=== PATIENT | female | born 1980 | race African-American/Black ===

== ENCOUNTER 2020-07-05 09:29 | Emergency (ER) | payer OTHER, SELFPAY ==
--- NOTE | 2020-07-05 09:50 | ED.URI ---
HPI - URI/Sore Throat General Chief Complaint: Upper Respiratory Infection Stated Complaint: Sore throat Time Seen by Provider: 07/05/20 10:05 Source: patient and RN notes reviewed Mode of arrival: ambulatory Limitations: no limitations History of Present Illness HPI Narrative: 4-year-old female presents with concern for 10-day history of nasal congestion, rhinorrhea. Reports symptoms of cough, throat pain, ear pain started yesterday. Reports blisters on the side of her tongue. Reports she has been taking ibuprofen and Sudafed with occasional relief. She denies fever, shortness of breath, chills, sweats. MD elicited complaint: sore throat Related Data Allergies Allergy/AdvReac Type Severity Reaction Status Date / Time azithromycin Allergy Swelling Verified 07/05/20 10:09 Review of Systems Review of Systems: Narrative: CONSTITUTIONAL: Denies malaise, chills, sweats, or fever. EYES: Denies visual changes, redness, or discharge. ENT: Reports rhinorrhea, congestion, sinus pain, otalgia and sore throat. CARDIOVASCULAR: Denies chest pain, palpitations, or edema. RESPIRATORY: Reports cough. Denies dyspnea. GASTROINTESTINAL: Denies abdominal pain, nausea, vomiting, diarrhea SKIN: Denies rash or itching. MUSCULOSKELETAL: Denies myalgia. NEUROLOGIC: Denies headache. All systems reviewed & are unremarkable except as noted in HPI and below PMFSH Social History Social History Gender identity (if verbalized by the patient): Female Comments At time of signature, agree with nursing past medical, surgical, social and family history. There is no relevant family history pertinent to the presenting complaint Exam Narrative: Exam Narrative: GENERAL: Well-appearing, well-nourished, and in no acute distress. HEAD: Normocephalic EYES: PERRLA, conjunctivae clear ENT: Nares clear, turbinates edematous and erythematous, sinus tenderness. Mucous membranes moist. TM mildly erythematous with dull light reflex bilaterally; no tragal tenderness. Oropharynx erythematous without lesions. Tonsils enlarged and without exudate, no drooling, no hoarseness, no trismus, uvula midline. NECK: Supple. No lymphadenopathy CHEST: Clear to auscultation, breath sounds equal. No wheezing, rhonchi, rales, or stridor. No respiratory distress, speaks in full sentences. HEART: Regular rate and rhythm. No murmur heard. SKIN: Warm, dry, no rash. NEURO: Alert and oriented x3. PSYCH: Normal mood and affect Course Course Emergency Course: Patient is aware of diagnosis, understands and agrees to treatment plan. Anticipatory guidance given. Patient agrees to follow-up as directed and is aware of reasons to seek care at the emergency department. Portions of this record may have been created with voice recognition software Vital Signs Vital signs: Vital Signs Temperature 98.6 F 07/05/20 09:54 Pulse Rate 91 07/05/20 09:54 Respiratory Rate 16 07/05/20 09:54 Blood Pressure 125/75 07/05/20 09:54 Pulse Oximetry 100 07/05/20 09:54 Temperature 98.6 F 07/05/20 09:54 Pulse Rate 91 07/05/20 09:54 Respiratory Rate 16 07/05/20 09:54 Blood Pressure 125/75 07/05/20 09:54 Pulse Oximetry 100 07/05/20 09:54 Reviewed. MDM - URI/Sore Throat MDM Narrative Medical decision making narrative: Differential diagnosis considered: Cain virus, strep pharyngitis, allergic rhinitis, upper respiratory tract infection, sinusitis, rhinosinusitis, nasopharyngitis. viral pharyngitis, otitis media, otitis externa, pneumonia, bronchitis, viral cough syndrome, viral syndrome, and influenza. Exam findings show no acute concerns or changes; patient is non-toxic appearing and is in no distress. Patient is appropriate for outpatient treatment and follow-up. Lab Data Attestation: I reviewed the patient's lab results. Labs: Strep Screen Presumptive Negative *(Reference Range: Negative)* Critical Care Time Criti
[2020-07-05 09:54] VITALS: BP 125/75; PULSE 91; RESP 16; TEMP 37; O2SAT 100
--- NOTE | 2020-07-05 10:28 | PC.NURSE ---
culture not sent, Marlyn called lab to cancel order, okay per Gisela GRIEVANCE AND APPEALS COORDINATOR
== END 2020-07-05 10:24 | disposition home or self-care (01) ==
PROVIDERS: Emergency Provider Nurse Practitioner
DX: J01.90 Acute sinusitis, unspecified (principal)
CPT/HCPCS: 87880; 99213; G0463

== ENCOUNTER 2020-10-08 13:03 | Emergency (ER) | payer OTHER, SELFPAY ==
--- NOTE | 2020-10-08 13:17 | PC.NURSE ---
was called x2 at 1313 at [phone]
--- NOTE | 2020-10-08 13:23 | PC.NURSE ---
called at 1322 no answer, message left to call express care back.
--- NOTE | 2020-10-08 13:35 | PC.NURSE ---
called again at 1333 and person answering said wrong number.
[2020-10-08 13:43] VITALS: BP 136/84; PULSE 102; RESP 16; TEMP 37.4; O2SAT 100
--- NOTE | 2020-10-08 13:48 | ED.SKABFB ---
HPI - Skin/Abscess/Foreign Bdy General Chief complaint: Skin/Abscess/Foreign Body Stated complaint: Rash on back of leg Time Seen by Provider: 10/08/20 13:45 Source: patient Mode of arrival: ambulatory Limitations: no limitations History of Present Illness HPI narrative: Tamika Fuller is a 40 yo female with no PMH who comes with a rash on the crease of her upper leg and buttocks bilaterally in the last week. The rash is raised itchy and tender to touch is not improved even with use of calamine, alcohol, lotion. Denies any allergies denies any change in care products, does not go to the gym Related Data Home Medications Medication Instructions Recorded Confirmed Iud 10/08/20 Allergies Allergy/AdvReac Type Severity Reaction Status Date / Time azithromycin Allergy Swelling Verified 07/05/20 10:09 Review of Systems Review of Systems: Narrative: CONSTITUTIONAL: Denies fever, chills, sweats. EYES: Denies visual changes, redness, discharge. ENT: Denies rhinorrhea, congestion, sore throat, otalgia. CARDIOVASCULAR: Denies chest pain, palpitations, edema. RESPIRATORY: Denies dyspnea, wheezing, cough GASTROINTESTINAL: Denies abdominal pain, nausea, vomiting, diarrhea. GENITOURINARY: Denies dysuria, hematuria, abnormal discharge SKIN: Raised mildly red rash on upper legs bilaterally, mostly posterior legs NEUROLOGIC: Denies numbness, or focal weakness. PSYCHIATRIC: Denies anxiety or depression. PMFSH Past Medical History Medical History No acute medical problems Family History Family History Other Diabetes mellitus Social History Social History (Updated 10/08/20 @ 14:02 by Regina Mendoza CNP) Smoking packs per day: 0.5 Smoking cigarettes per day: 10.0 Smoking status: Current every day smoker Alcohol intake: current Gender identity (if verbalized by the patient): Female Comments At time of signature, I agree with nursing past medical, surgical, social and family history. There is no relevant family history pertinent to the presenting complaint. Tachycardia noted on vital signs Exam Narrative: Exam Narrative: GENERAL: This is a well-nourished, well-developed patient, in mild distress. HEAD: normocephalic, atraumatic. EYES: Sclera clear/white. Vision is grossly intact. EARS: External ears normal,. Hearing grossly intact. NOSE: External nose normal without nasal discharge, nares without redness, no rhinorrhea. THROAT: Mucous membranes moist, NECK: Neck supple, CARDIOVASCULAR: Regular rate and rhythm without murmurs, gallops, or rubs. RESPIRATORY: Clear to auscultation. Breath sounds equal bilaterally. No wheezes, rales, or rhonchi. GASTROINTESTINAL: Abdomen soft, non-tender, SKIN: warm, intact with hive-like raised areas on both buttocks and upper posterior legs worse on the right than the left, mildly tender to touch NEURO: awake, alert, and oriented to person, place and time. There were no obvious focal neurologic abnormalities. Steady gait EXTREMITIES: Normal range of motion. BACK: Nontender without deformity Course Course Emergency Course: Came to urgent care with bilateral posterior leg rash that is tender and pruritic Started on clotrimazole and a Medrol taper pack Discussed with patient not wearing new close without washing or changing products keeping area dry We will follow up with PCP Vital Signs Vital signs: Vital Signs Temperature 99.3 F 10/08/20 13:43 Pulse Rate 102 H 10/08/20 13:43 Respiratory Rate 16 10/08/20 13:43 Blood Pressure 136/84 10/08/20 13:43 Pulse Oximetry 100 10/08/20 13:43 Temperature 99.3 F 10/08/20 13:54 Pulse Rate 102 H 10/08/20 13:54 Respiratory Rate 16 10/08/20 13:54 Blood Pressure 136/84 10/08/20 13:54 Pulse Oximetry 100 10/08/20 13:54 Critical Care Time Critical Care Time Critical Care Time: No Dis
[2020-10-08 13:54] VITALS: BP 136/84; PULSE 102; RESP 16; TEMP 37.4; O2SAT 100
== END 2020-10-08 14:13 | disposition home or self-care (01) ==
PROVIDERS: Emergency Provider Nurse Practitioner
DX: L50.9 Urticaria, unspecified (principal); F17.210 Nicotine dependence, cigarettes, uncomplicated
CPT/HCPCS: 99213; G0463

== ENCOUNTER 2020-10-26 15:08 | Outpatient (CLI) | payer OTHER, SELFPAY ==
[2020-10-26 16:37] LABS: Beta HCG Quantitative < 2.39 mIU/ML
== END 2020-10-26 15:09 | disposition home or self-care (01) ==
LOC: ANHLAB 15:10
PROVIDERS: Visit Provider Advanced Practice Midwife
DX: Z30.9 Encounter for contraceptive management, unspecified (principal)
CPT/HCPCS: 36415; 84702

== ENCOUNTER 2022-09-01 12:53 | Emergency (ER) | payer OTHER, SELFPAY ==
--- NOTE | ~2022-09-01 | XR_ITS ---
XR foot RT min 3V 09/01/2022 13:51 INDICATION: Right foot pain and swelling after twisting injury. PROCEDURE: 4 views right foot COMPARISON: No prior studies for comparison. FINDINGS: There is possible avulsion fracture from the lateral margin of the calcaneal cuboid joint s een on the oblique view only. There is moderate soft tissue swelling.. The soft tissues appear within normal limits. No foreign bodies are identified. IMPRESSION: 1: Possible avulsion fracture lateral margin of the calcaneal cuboid joint seen on oblique view only. Correlate for point tenderness. Reviewed, dictated and finalized at location A. [employer] TECHNICIAN
--- NOTE | ~2022-09-01 | XR_ITS ---
XR ankle RT min 3V DATE: 09/01/2022 13:16 INDICATION: Rolled ankle last night. Pain and swelling laterally. TECHNIQUE: 4 views COMPARISON: None FINDINGS: No fracture or dislocation of the ankle or disruption of the ankle mortise. IMPRESSION: Negative Reviewed, dictated and finalized at location B. [employer] IMPRESSION: Negative
[2022-09-01 13:03] VITALS: BP 150/86; PULSE 98; RESP 14; TEMP 36.3; O2SAT 100
--- NOTE | 2022-09-01 14:47 | ED.LOWEXIN ---
HPI - Extremity Injury (Lower) General Chief Complaint: Extremity Injury, Lower Stated Complaint: R ankle injury that occurred last night - swelling Time Seen by Provider: 09/01/22 13:42 History of Present Illness HPI Narrative: 42-year-old female presents to the emergency room complaints of right ankle and foot pain. Patient states last night she was walking her dog down the stairs to help go outside, when she slipped down a stair twisting her ankle. Patient states that she noticed swelling and pain to the outside of her foot immediately. Has been able to ambulate but with pain. Has been taking Tylenol and ibuprofen for her pain relief Related Data Home Medications Medication Instructions Recorded Confirmed Iud 10/08/20 Allergies Allergy/AdvReac Type Severity Reaction Status Date / Time azithromycin Allergy Swelling Verified 09/01/22 12:54 Review of Systems Review of Systems: CONSTITUTIONAL: Denies fever, chills, or sweats. EYES: Denies visual changes, redness, or discharge. ENT: Denies rhinorrhea, congestion, sore throat, or otalgia. CARDIOVASCULAR: Denies chest pain, palpitations, or edema. RESPIRATORY: Denies cough or dyspnea. GASTROINTESTINAL: Denies abdominal pain, nausea, vomiting, or diarrhea. GENITOURINARY: Denies dysuria or hematuria. SKIN: Denies rash or itching. MUSCULOSKELETAL: Reports right ankle and foot pain NEUROLOGIC: Denies headache, numbness, dizziness, or weakness. PSYCHIATRIC: Denies anxiety or depression. [facility] Past Medical History Medical History No acute medical problems Family History Family History Other Diabetes mellitus Social History Social History Smoking packs per day: 0.5 Smoking cigarettes per day: 10.0 Smoking status: Current every day smoker Alcohol intake: current Gender identity (if verbalized by the patient): Female Exam Narrative: GENERAL: Well-appearing, well-nourished, no physical limitations, and in no acute distress. HEAD: Normocephalic, atraumatic. EYES: Conjunctivae normal, PERRLA and EOMI. CHEST: Clear to auscultation. No respiratory distress. No wheezes rales or rhonchi. HEART: Regular rate and rhythm. No murmur heard. Normal peripheral pulses. EXTREMITIES: right foot/ankle: +TTP to lateral surface of midfoot with STS. Unable to assess for laxity d/t pain. No obvious bony abnormality. Neurovascular is intact distally SKIN: Warm, dry, no rash. No noted wounds NEURO: No focal deficits. Alert and oriented x3. MAEW. CN's II-XI intact bilaterally, normal gait PSYCH: Cooperative. Normal mood and affect. Course Vital Signs Vital signs: Vital Signs Temperature 36.3 C L 09/01/22 13:03 Pulse Rate 98 09/01/22 13:03 Respiratory Rate 14 09/01/22 13:03 Blood Pressure 150/86 H 09/01/22 13:03 Pulse Oximetry 100 09/01/22 13:03 Oxygen Delivery Room Air 09/01/22 13:03 Temperature 36.3 C L 09/01/22 13:03 Pulse Rate 98 09/01/22 13:03 Respiratory Rate 14 09/01/22 13:03 Blood Pressure 150/86 H 09/01/22 13:03 Pulse Oximetry 100 09/01/22 13:03 Oxygen Delivery Room Air 09/01/22 13:03 Discharge Plan Discharge Clinical Impression: Foot fracture, right Patient Disposition: Home, Self-Care Condition: Stable Instructions: Antibiotic Form Prescriptions: New hydrocodone-acetaminophen 5-325 mg tablet 1 tablet PO Q8H PRN (Reason: pain) Qty: 20 0RF No Action Iud methylprednisolone [Medrol (Brian)] 4 mg tablets,dose pack See Rx Instructions .ROUTE .COMPLEX Qty: 21 0RF Rx Instructions: orally per package directions triamcinolone acetonide 0.5 % cream 1 applic topical TID Qty: 15 0RF Follow-up/Referrals: Nader Aquino MD [Physician] - PHYSICIAN,[employer] [Primary Care Provider] - Time of Dispos
== END 2022-09-01 16:11 | disposition home or self-care (01) ==
PROVIDERS: Emergency Provider Nurse Practitioner Family
DX: S92.211A Displaced fracture of cuboid bone of right foot, initial encounter for closed fracture (principal); X50.9XXA Other and unspecified overexertion or strenuous movements or postures, initial encounter
CPT/HCPCS: 29515; 73610; 73630; 99284

== ENCOUNTER 2023-05-15 09:31 | Emergency (ER) | payer BC, OTHER, SELFPAY ==
[2023-05-15 09:44] VITALS: BP 165/112; PULSE 98; RESP 18; TEMP 37; O2SAT 100
[2023-05-15 11:07] VITALS: BP 146/94; PULSE 93; RESP 18; O2SAT 99
[2023-05-15 12:55] VITALS: BP 140/95; PULSE 91; RESP 18; O2SAT 100
--- NOTE | 2023-05-15 12:56 | ED.DENTAL ---
HPI - Dental/Oral General Chief complaint: Dental/Oral Stated complaint: dental pain Time Seen by Provider: 05/15/23 11:55 History of Present Illness HPI Narrative: 42-year-old female with history of dental caries presented the emergency department for evaluation of worsening left upper posterior dental pain. Patient states that she is supposed to have a dental extraction of the infected tooth but states over the last few days she has had worsening pain and swelling. Patient did follow-up with her dentist for this and is scheduled to have an extraction in the next month or so. Patient states over the last few days she has had worsening facial swelling and pain. Patient has been taking ibuprofen for pain control without significant improvement. Patient denies any difficulty breathing or swallowing. Patient does have some associated facial swelling. Related Data Home Medications Medication Instructions Recorded Confirmed Iud 10/08/20 10/20/22 Allergies Allergy/AdvReac Type Severity Reaction Status Date / Time azithromycin Allergy Swelling Verified 05/15/23 11:05 Review of Systems Review of Systems: All systems reviewed & are unremarkable except as noted in HPI and below PMFSH Past Medical History Medical History No acute medical problems Family History Family History Other Diabetes mellitus Social History Social History Smoking packs per day: 0.5 Smoking cigarettes per day: 10.0 Smoking status: Current every day smoker Alcohol intake: current Gender identity (if verbalized by the patient): Female Exam Narrative: APPEARANCE: Well appearing, no pain, no distress, well-nourished. HEAD: normocephalic, atraumatic. EYES: PERRLA/EOMI, conjunctivae clear. NOSE: Normal no drainage Mouth: Dental caries no abscess amenable to drainage. EARS:TMS clear with good light reflex. THROAT: Pharynx clear, no exudate. NECK: Supple. No adenopathy, no masses. RESPIRATORY: Airway patent, respirations nonlabored. Clear to auscultation bilaterally, no rales, rhonchi, wheezing. CARDIOVASCULAR: Regular rate and rhythm without murmurs rubs or gallops. ABDOMINAL: Soft, nontender, nondistended, normal bowel sounds MUSCULOSKELETAL: Moves all extremities. Strength/ROM intact, No edema, No calf tenderness. NEURO: Alert. Cranial nerves II through XII intact. Grossly intact SKIN: Warm, dry. Normal Color Course Course Emergency Course: 40-year-old female presented ED for evaluation of dental pain and facial swelling. Patient does have obvious dental caries with no abscess amenable to drainage. No evidence of trismus. Patient was started antibiotics in the ED and provided antibiotics and medications for pain control for home. Patient was encouraged to continue with close follow-up with her dentist for definitive treatment. All questions concerns were addressed Vital Signs Vital signs: Vital Signs Temperature 98.6 F 05/15/23 09:44 Pulse Rate 98 05/15/23 09:44 Respiratory Rate 18 05/15/23 09:44 Blood Pressure 165/112 H 05/15/23 09:44 Pulse Oximetry 100 05/15/23 09:44 Oxygen Delivery Room Air 05/15/23 09:44 Temperature 98.6 F 05/15/23 09:44 Pulse Rate 91 05/15/23 12:55 Respiratory Rate 18 05/15/23 12:55 Blood Pressure 140/95 H 05/15/23 12:55 Pulse Oximetry 100 05/15/23 12:55 Oxygen Delivery Room Air 05/15/23 09:44 Discharge Plan Discharge Clinical Impression: Dental caries Patient Disposition: Home, Self-Care Condition: Stable Instructions: Antibiotic Form Additional Instructions: Antibiotic as directed until completed. Ibuprofen for pain control. [place] as needed for additional pain control. Have close follow-up with your dentist as scheduled. If you have any worsening symptoms then jarret
[2023-05-15] MEDS: AMOXICILLIN/CLAVULANATE K 875-125 MG TAB 1 TABLET PO (13:03)
== END 2023-05-15 13:06 | disposition home or self-care (01) ==
PROVIDERS: Emergency Provider Emergency Medicine; PCP Internal Medicine Gastroenterology
DX: K02.9 Dental caries, unspecified (principal); F17.210 Nicotine dependence, cigarettes, uncomplicated
CPT/HCPCS: 99283; A9270

== ENCOUNTER 2024-11-06 12:03 | Emergency (ER) | payer OTHER, SELFPAY ==
--- NOTE | ~2024-11-06 | CT_ITS ---
EXAMINATION: CT abdomen pelvis w con DATE: 11/06/2024 16:01 INDICATION: Right lower quadrant abdominal pain TECHNIQUE: Computed tomography (CT) of the abdomen and pelvis was performed with 100 mL Omnipaque-350 intravenous contrast. Automated exposure control and iterative reconstruction technique were employe d. The dose-length product was 887.35 mGy-cm. COMPARISON: None FINDINGS: Lung bases are clear. Heart size normal. No pericardial or pleural effusion. Bilateral breast implant s. Liver, gallbladder, spleen, pancreas, bilateral adrenal glands and kidneys are normal. Bladder is normal. T-shaped IUD in expected position within the anteverted uterus. Bilateral adnexa are unremark able. There is prominent diffuse edematous wall thickening of the colon consistent with pancolitis. M ild sigmoid diverticulosis. Small bowel and appendix are normal. No free intraperitoneal gas or fluid . No pathologically enlarged abdominal or pelvic lymphadenopathy. Bones are unremarkable. IMPRESSION: 1. Pancolitis most likely either infectious or inflammatory in etiology. 2. IUD in expected position within the anteverted uterus. Reviewed, dictated and finalized at location A. [facility]
--- OUTSIDE RECORDS SUMMARY | 2024-11-06 12:05 | XMS_ITS | Data Portability ---
[facility] Address [address] [place] [address] Care Team Providers Care Bait Man Name Role Phone MARIANO COLLINS Primary Care Provider [phone] Assessment No assessment recorded. Plan of Treatment Reminders Order Date Submit Date Provider Last Modified By Organization Details Last Modified Time Details Appointments None recorded . Lab CMP, serum or plasma 2024 025 [facility], [address], [place], [address], 5 08:24:45 lipid panel, serum 2024 025 [facility], [address], [place], [address], 5 08:24:44 HbA1c (hemoglo bin A1c), blood 2024 025 [facility], [address], [place], [address], 5 06:17:59 CBC 2024 025 [facility], [address], [place], [address], 5 08:24:46 HbA1c (hemoglo bin A1c), blood 2022 023 [facility], [address], [address], [place], [address], 3 09:23:57 CMP, serum or plasma 2022 023 [facility], [address], [address], [place], [address], 3 06:18:20 lipid panel, serum 2022 023 [facility], [address], [address], [place], [address], 3 06:18:20 Referral None recorded . Procedures None recorded . Surgeries None recorded . Imaging XR, cervical spine 2023 024 [facility] (Admitting), [address] [place] [address], [address], 4 15:14:22 XR, shoulder , 2 or more view 2023 024 [facility] (Admitting), [address] [place] [address] [address], [place], [address], 4 15:14:22 Medication Orders amlodipi ne 5 mg tablet 2024 025 [facility] #[facility]48, [address] , [place], [place], [id number], 5 12:15:18 losartan 50 mg tablet 2024 025 [facility] #20417, [address], [place], [place], [id number], 5 12:15:18 atorvast atin 20 mg tablet 2024 025 [facility] #46440, [address] , [place], [place], [id number], 5 10:32:01 amlodipi ne 5 mg tablet 2022 023 [facility] #53075, [address], [place], [place], [id number], 15:48:57 atorvast atin 20 mg tablet 2022 023 [facility] #47953, [address], [place], [place], [id number], 5 10:31:52 losartan 50 mg tablet 2022 023 [facility][id number], [address], [place], [place], [id number], 15:10:28 Patient TargetsNo targets recorded. Patient Instructions Encounter Date Encounter Id Patient Instructions Last Modified By Organization Details Last Modified Time 07/11/2023 [id number] learning about high blood sugar Not available 07/11/2023 15:09:59 A healthy lifestyle: care instructions [email or web address] Not available 07/11/2023 15:09:59 learning about high blood pressure [email or web address] Not available 07/11/2023 15:10:00 high cholesterol : care instructions Not available 07/11/2023 15:09:59 08/08/2023 [id number] learning about high blood pressure Not available 08/08/2023 15:48:46 high cholesterol : care instructions [email or web address] Not available 08/08/2023 15:48:45 09/06/2023 [id number] learning about high blood sugar [email or web address] Not available 09/06/2023 15:14:10 A healthy lifestyle: care instructions [email or web address] Not available 09/06/2023 15:14:10 learning about high blood pressure Not available 09/06/2023 15:14:10 high cholesterol : care instructions Not available 09/06/2023 15:14:10 12/06/2023 [id number] neck pain: care instructions [email or web address] Not available 12/06/2023 12:12:00 learning about high blood sugar [email or web address] Not available 12/06/2023 12:12:00 A healthy lifestyle: care instructions [email or web address] Not available 12/06/2023 12:12:00 learning about high blood pressure [email or web address] Not available 12/06/2023 12:12:00 high cholesterol : care instructions [email or web address] Not available 12/06/2023 12:12:00 10/14/2024 [id number] learning about high blood sugar [email or web address] Not available 10/14/2024 12:15:06 learning about high blood pressure [email or web address] Not available 10/14/2024 12:15:06 high cholesterol : care instructions [email or web address] Not available 10/14/2024 12:15:06 Reason for Referral None Reported. Results Created Date Observation Date Name Description Value Unit Range Abnormal Flag Note LastModifiedBy Organization Detail LastModifiedTime 07/11/2007/11/2023 LIPID PANEL cholesterol, total 224 mg/dL 100-19 9 above high normal Not Available [facility] [address] [place], [address], 07/12/2023 06:18:20 07/11/2007/11/2023 LIPID PANEL triglyceride s 277 mg/dL 0-149 above high normal Not Available [facility] [address] [place], [address], 07/12/2023 06:18:20 07/11/2007/11/2023 LIPID PANEL HDL cholesterol 48 mg/dL 40-[address] [facility] [address] [place], [address], 07/12/2023 06:18:20 07/11/2007/11/2023 LIPID PANEL VLDL cholesterol beverly 55 mg/dL 5-40 above high normal Not Available [facility] [address] [place], [address], 07/12/2023 06:18:20 07/11/2007/11/2023 LIPID PANEL LDL chol calc ([facility]) 160 mg/dL 0-99 above high normal Not Available [facility] [address] [place] [address], [address], 07/12/2023 06:18:20 07/11/20 23 07/11/2023 COMP. METAB OLIC PANEL (14) glucose 96 mg/dL 70-99 Not Available [facility] [address] [place] [address], [address], 07/12/2023 06:18:20 07/11/20 23 07/11/2023 COMP. METAB OLIC PANEL (14) BUN 14 mg/dL 6-24 Not Available [facility] [address] [place] [address], [address], 07/12/2023 06:18:20 07/11/20 23 07/11/2023 COMP. METAB OLIC PANEL (14) creatinine 0.60 mg/dL 0.76-1 .27 below low normal Not Available [facility] [address] [place] [address], [address], 07/12/2023 06:18:20 07/11/20 23 07/11/2023 COMP. METAB OLIC PANEL (14) eGFR 114 >=60 Units for eGFR value s are mL/mi n/1.7 3 The eGFR Calcu latio n has not been valid ated for patie nts under the age of 18. If test resul ts are displ ayed for a patie nt under the age of 18, disre ellen that value . Not Available [facility] [address] [place] [address], [address], 07/12/2023 06:18:20 07/11/20 23 07/11/2023 COMP. METAB OLIC PANEL (14) BUN/creatini ne ratio 23 9-23 Not Available [facility] [address] [place] [address], [address], 07/12/2023 06:18:20 07/11/20 23 07/11/2023 COMP. METAB OLIC PANEL (14) sodium 136 mmol/ L 134-14 4 Not Available [facility] [address] [place], [address], 07/12/2023 06:18:20 07/11/20 23 07/11/2023 COMP. METAB OLIC PANEL (14) potassium 3.6 mmol/ L 3.5-5. 2 Not Available [facility] [address] [place], [address], 07/12/2023 06:18:20 07/11/20 23 07/11/2023 COMP. METAB OLIC PANEL (14) chloride 98 mmol/ L 96-106 Not Available [facility] [address] [place], [address], 07/12/2023 06:18:20 07/11/20 23 07/11/2023 COMP. METAB OLIC PANEL (14) carbon dioxide, total 24 mmol/ L 20-29 Not Available [facility] [address] [place], [address], 07/12/2023 06:18:20 07/11/20 23 07/11/2023 COMP. METAB OLIC PANEL (14) calcium 9.7 mg/dL 8.7-10 .2 Not Available [facility] [address] [place], [address], 07/12/2023 06:18:20 07/11/20 23 07/11/2023 COMP. METAB OLIC PANEL (14) protein, total 7.0 g/dL 6.0-8. 5 Not Available [facility] [address] [place], [address], 07/12/2023 06:18:20 07/11/20 23 07/11/2023 COMP. METAB OLIC PANEL (14) albumin 4.4 g/dL 3.9-4. 9 Not Available [facility] [address] [place], [address], 07/12/2023 06:18:20 07/11/20 23 07/11/2023 COMP. METAB OLIC PANEL (14) globulin, total 2.6 g/dL 1.5-4. 5 Not Available [facility] [address] [place], [address], 07/12/2023 06:18:20 07/11/20 23 07/11/2023 COMP. METAB OLIC PANEL (14) A/G ratio 2.0 1.2-2. 2 Not Available [facility] [address] [place], [address], 07/12/2023 06:18:20 07/11/20 23 07/11/2023 COMP. METAB OLIC PANEL (14) bilirubin, total 0.3 mg/dL 0.0-1. 2 Not Available [facility] [address] [place], [address], 07/12/2023 06:18:20 07/11/20 23 07/11/2023 COMP. METAB OLIC PANEL (14) alkaline phosphatase 74 IU/L 44-[address] [facility] [address] [place], [address], 07/12/2023 06:18:20 07/11/20 23 07/11/2023 COMP. METAB OLIC PANEL (14) AST (SGOT) 18 IU/L 0-40 Not Available [facility] Department [address] [place], [address], 07/12/2023 06:18:20 07/11/20 23 07/11/2023 COMP. METAB OLIC PANEL (14) ALT (SGPT) 19 IU/L 0-32 Not Available [facility] Department [address] [place], [address], 07/12/2023 06:18:20 07/11/20 23 07/12/2023 HEMOG LOBIN A1C hemoglobin A1C 5.4 % 4.8-5. 6 Predi abete s: 5.7 - 6.4 Diabe frederick: >6.4 Glyce ashley contr ol for adult s with diabe frederick: <7.0 Not Available [facility] [address] [place], [address], 07/12/2023 09:23:57 10/14/19 25 10/15/2024 HEMOG LOBIN A1C hemoglobin A1C 5.5 % 4.8-5. 6 Predi abete s: 5.7 - 6.4 Diabe frederick: >6.4 Glyce ashley contr ol for adult s with diabe frederick: <7.0 Not Available [facility] [address] [place], [address], 10/15/2024 06:17:59 10/14/19 25 10/15/2024 LIPID PANEL cholesterol, total 214 mg/dL 100-19 9 above high normal Not Available [facility] [address] [place], [address], 10/15/2024 08:24:44 10/14/19 25 10/15/2024 LIPID PANEL triglyceride s 303 mg/dL 0-149 above high normal Not Available [facility] [address] [place], [address], 10/15/2024 08:24:44 10/14/19 25 10/15/2024 LIPID PANEL HDL cholesterol 39 mg/dL >39 below low normal Not Available [facility] [address] [place], [address], 10/15/2024 08:24:44 10/14/19 25 10/15/2024 LIPID PANEL VLDL cholesterol beverly 53 mg/dL 5-40 above high normal Not Available [facility] [address] [place], [address], 10/15/2024 08:24:44 10/14/19 25 10/15/2024 LIPID PANEL LDL chol calc ([facility]) 122 mg/dL 0-99 above high normal Not Available [facility] [address] [facility] [place], [address], 10/15/2024 08:24:44 10/14/19 25 10/15/2024 COMP. METAB OLIC PANEL (14) glucose 102 mg/dL 70-99 above high normal Not Available [facility] [address] [facility] [place], [address], 10/15/2024 08:24:45 10/14/19 25 10/15/2024 COMP. METAB OLIC PANEL (14) BUN 15 mg/dL 6-24 Not Available [facility] [address] [facility] [place], [address], 10/15/2024 08:24:45 10/14/19 25 10/15/2024 COMP. METAB OLIC PANEL (14) creatinine 0.60 mg/dL 0.57-1 .00 Not Available [facility] [address] [place], [address], 10/15/2024 08:24:45 10/14/19 25 10/15/2024 COMP. METAB OLIC PANEL (14) eGFR 113 mL/mi n/1.7 3 >59 Not Available [facility] [address] [place], [address], 10/15/2024 08:24:45 10/14/19 25 10/15/2024 COMP. METAB OLIC PANEL (14) BUN/creatini ne ratio 25 9-23 above high normal Not Available [facility] [address] [place], [address], 10/15/2024 08:24:45 10/14/19 25 10/15/2024 COMP. METAB OLIC PANEL (14) sodium 136 mmol/ L 134-14 4 Not Available [facility] [address] [place], [address], 10/15/2024 08:24:45 10/14/19 25 10/15/2024 COMP. METAB OLIC PANEL (14) potassium 3.9 mmol/ L 3.5-5. 2 Not Available [facility] [address] [facility] [place], [address], 10/15/2024 08:24:45 10/14/19 25 10/15/2024 COMP. METAB OLIC PANEL (14) chloride 101 mmol/ L 96-106 Not Available [facility] [address] [facility] [place] [address], 10/15/2024 08:24:45 10/14/19 25 10/15/2024 COMP. METAB OLIC PANEL (14) carbon dioxide, total 23 mmol/ L 20-29 Not Available [facility] [address] [facility] [place], [address], 10/15/2024 08:24:45 10/14/19 25 10/15/2024 COMP. METAB OLIC PANEL (14) calcium 9.5 mg/dL 8.7-10 .2 Not Available [facility] [address] [facility] [place], [address], 10/15/2024 08:24:45 10/14/19 25 10/15/2024 COMP. METAB OLIC PANEL (14) protein, total 7.0 g/dL 6.0-8. 5 Not Available [facility] [address] [facility] [place], [address], 10/15/2024 08:24:45 10/14/19 25 10/15/2024 COMP. METAB OLIC PANEL (14) albumin 4.4 g/dL 3.9-4. 9 Not Available [facility] [address] [facility] [place], [address], 10/15/2024 08:24:45 10/14/19 25 10/15/2024 COMP. METAB OLIC PANEL (14) globulin, total 2.6 g/dL 1.5-4. 5 Not Available [facility] [address] [place], [address], 10/15/2024 08:24:45 10/14/19 25 10/15/2024 COMP. METAB OLIC PANEL (14) bilirubin, total 0.3 mg/dL 0.0-1. 2 Not Available [facility] [address] [facility], [place], [address], 10/15/2024 08:24:45 10/14/19 25 10/15/2024 COMP. METAB OLIC PANEL (14) alkaline phosphatase 63 IU/L 44-121 Not Available [facility] [address] [facility], [place], [address], 10/15/2024 08:24:45 10/14/19 25 10/15/2024 COMP. METAB OLIC PANEL (14) AST (SGOT) 15 IU/L 0-40 Not Available [facility] [address] [place], [address], 10/15/2024 08:24:45 10/14/19 25 10/15/2024 COMP. METAB OLIC PANEL (14) ALT (SGPT) 15 IU/L 0-32 Not Available [facility] [address] [place], [address], 10/15/2024 08:24:45 10/14/19 25 10/15/2024 CBC, PLATE LET, NO DIFFE RENTI AL WBC 8.3 x10e3 /uL 3.4-10 .8 Not Available [facility] [address] [place], [address], 10/15/2024 08:24:46 10/14/19 25 10/15/2024 CBC, PLATE LET, NO DIFFE RENTI AL RBC 4.76 x10e6 /uL 3.77-5 .28 Not Available [facility] [address] [facility], [place], [address], 10/15/2024 08:24:46 10/14/19 25 10/15/2024 CBC, PLATE LET, NO DIFFE RENTI AL hemoglobin 14.6 g/dL 11.1-1 5.9 Not Available [facility] [address] [facility], [place], [address], 10/15/2024 08:24:46 10/14/1910/15/2024 CBC, PLATE LET, NO DIFFE RENTI AL hematocrit 45.6 % 34.0-4 6.6 Not Available [facility] [address] [facility], [place], [address], 10/15/2024 08:24:46 10/14/1910/15/2024 CBC, PLATE LET, NO DIFFE RENTI AL MCV 96 fL 79-97 Not Available [facility] [address] [place], [address], 10/15/2024 08:24:46 10/14/19 25 10/15/2024 CBC, PLATE LET, NO DIFFE RENTI AL MCH 30.7 pg 26.6-3 3.0 Not Available [facility] [address] [place], [address], 10/15/2024 08:24:46 10/14/19 25 10/15/2024 CBC, PLATE LET, NO DIFFE RENTI AL MCHC 32.0 g/dL 31.5-3 5.7 Not Available [facility] [address] [facility], [place], [address], 10/15/2024 08:24:46 10/14/19 25 10/15/2024 CBC, PLATE LET, NO DIFFE RENTI AL RDW 12.9 % 11.7-1 5.4 Not Available [facility] [address] [facility], [place], [address], 10/15/2024 08:24:46 10/14/19 25 10/15/2024 CBC, PLATE LET, NO DIFFE RENTI AL platelets 322 x10e3 /uL 150-45 0 Not Available [facility] [address] [facility], [place], [address], 10/15/2024 08:24:46 Result Notes None recorded. Problems Name Problem SNOMED Code Status Onset Date Resolution Date Notes Provider Name and Address Organization Details Recorded Time Adult health examination Active 2022 Mariano Collins MD Attn: Milka carvalho,[address] [place], [address], [place] [facility] 3 15:11:26 Active immunizatio n Active 2022 Mariano Collins MD Attn: Milka carvalho,[address] [place], [address], [place] [facility] 3 15:11:45 Essential hypertensio n 15261507 Active 2022 Mariano Collins MD Attn: Milka carvalho,[address] [place], [address], [place] [facility] 3 15:21:10 Hyperglycem ia 02048045 Active 2022 Mariano Collins MD Attn: Milka carvalho,[address] [place], [address], [place] [facility] 3 17:06:43 Hyperlipide nguyen 05382940 Active 2022 Mariano Collins MD Attn: Milka carvalho,[address] [place], [address], [place] [facility] 3 17:06:55 Neck pain 65521763 Active 2023 Mariano Collins MD Attn: Milka carvalho,[address] [facility], [place], [address], [place] [facility] 4 12:10:19 Pain of right shoulder joint 0944864054974 9100 Active 2023 Mariano Collins MD Attn: Milka carvalho,[address], [place], [address], [place] [facility] 4 12:10:37 Problem Notes None recorded. Medical Equipment None Reported. Allergies Allergen ID Allergen Name Allergen Category Reaction Reaction Severity Criticality Documentation Date Start Date Code Code System Note Provider Name and Address Organization Details Recorded Time 478948 erythromy frances medicatio n Not available Not available Not available 11/30/2022 4053 RxNorm Not Available Not Available Not Available Medications Name Sig Start Date Stop Date Status Note LastModified by Organization Details LastModified Time losartan 50 mg tablet Take 1 tablet every day by oral route. 2024 active Not Available Not Available Not Avai lable atorvastati n 40 mg tablet Take 1 tablet every day by oral route in the evening. 2024 active Not Available Not Available Not Avai lable atorvastati n 20 mg tablet TAKE 1 TABLET BY MOUTH EVERY DAY active Not Available Not Available No t Available hydrocodone 5 mg-acetamin ophen 325 mg tablet TAKE 1 TABLET BY MOUTH EVERY 12 HOURS NEEDED FOR PAIN 12/05 completed Not Available Not Available Not Available phentermine 37.5 mg tablet TAKE 1 TABLET BY MOUTH DAILY 11/30 completed Not Available Not Available Not Available amlodipine 5 mg tablet TAKE 1 TABLET BY MOUTH EVERY DAY active Not Available Not Available No t Available losartan 25 mg tablet TAKE 1 TABLET BY MOUTH DAILY 08/08 completed Not Available Not Available Not Available ibuprofen 600 mg tablet TAKE 1 TABLET BY MOUTH THREE TIMES DAILY NEEDED FOR PAIN 11/30 completed Not Available Not Available Not Available oxycodone-a cetaminophe n 7.5 mg-325 mg tablet TAKE 1 TABLET BY MOUTH EVERY 6 HOURS NEEDED FOR PAIN 11/30 completed Not Available Not Available Not Available amoxicillin 875 mg-potassiu m clavulanate 125 mg tablet TAKE 1 TABLET BY MOUTH EVERY 12 HOURS 12/05 completed Not Available Not Available Not Available fenofibrate 150 mg capsule 1 capsule daily active Not Available Not Available No t Available Stimulant Laxative Plus 8.6 mg-50 mg tablet TAKE 1 TABLET BY MOUTH TWICE DAILY 11/30 completed Not Available Not Available Not Available [facility]-3 Fish Oil 300 mg-1,000 mg capsule Take 2 capsules twice a day by oral route with meals for 90 days. 12/05 completed Not Available Not Available Not Available Vitals Date Recorded Body height Body mass index (BMI) Body weight Body temperature Oxygen saturation Oxygen saturation in Arterial blood by Pulse oximetry Heart rate Systolic blood pressure Diastolic blood pressure Provider Name and Address Organization Details Last Updated DateTime 3 157.48 cm 28.5 kg/m2 42945.4 1 g 98 [degF] 100 % 100 % 101 /min 162 mm[Hg] 108 mm[Hg] Yoko Verde MA [facility] 3 14:53:49 Date Recorded Body height Body mass index (BMI) Body weight Heart rate Body temperature Oxygen saturation Oxygen saturation in Arterial blood by Pulse oximetry Systolic blood pressure Diastolic blood pressure Provider Name and Address Organization Details Last Updated DateTime 3 157.48 cm 29.3 kg/m2 71048.7 8 g 99 /min 98 [degF] 99 % 99 % 152 mm[Hg] 102 mm[Hg] Yoko Verde MA [facility] 3 15:24:17 Date Recorded Body height Body mass index (BMI) Body weight Body temperature Oxygen saturation Oxygen saturation in Arterial blood by Pulse oximetry Heart rate Systolic blood pressure Diastolic blood pressure Provider Name and Address Organization Details Last Updated DateTime 3 157.48 cm 29.3 kg/m2 46098.7 8 g 98 [degF] 99 % 99 % 96 /min 122 mm[Hg] 78 mm[Hg] Yoko Verde MA [facility] 3 15:05:20 Date Recorded Body height Body mass index (BMI) Body weight Body temperature Oxygen saturation Oxygen saturation in Arterial blood by Pulse oximetry Heart rate Systolic blood pressure Diastolic blood pressure Provider Name and Address Organization Details Last Updated DateTime 4 157.48 cm 28.7 kg/m2 11092 g 98 [degF] 99 % 99 % 97 /min 112 mm[Hg] 76 mm[Hg] Yoko Verde MA [facility] 4 11:48:57 Date Recorded Body height Body mass index (BMI) Body weight Heart rate Oxygen saturation Oxygen saturation in Arterial blood by Pulse oximetry Systolic blood pressure Diastolic blood pressure Provider Name and Address Organization Details Last Updated DateTime 5 157.48 cm 30.2 kg/m2 30594.8 8 g 102 /min 99 % 99 % 121 mm[Hg] 84 mm[Hg] Flavio Shine MA [place] [facility] 5 12:00:54 Social History Question Answer Notes LastModified by Organizat ion Details LastModified Time Tobacco Smoking Status Current Every Day Smoker Yoko Verde MA [facility] 11/30/2022 14:17:47 What Is Your Level Of Alcohol Consumption? Occasional Information not available 10/14/2024 Are You Blind Or Do You Have Difficulty Seeing? No Information not available 10/14/2024 What Is Your Level Of Caffeine Consumption? Occasional Information not available 10/14/2024 Are You Deaf Or Do You Have Serious Difficulty Hearing? No Information not available 10/14/2024 What Was The Date Of Your Most Recent Tobacco Screening? 10/14/2024 Information not available 10/14/2024 Do You Use Your Seat Belt Or Car Seat Routinely? Yes Information not available 10/14/2024 How Much Tobacco Do You Smoke? 0.5 PPD Information not available 11/30/2022 Do You Feel Stressed (tense, Restless, Nervous, Or Anxious, Or Unable To Sleep At Night)? [id number] Information not available 10/14/2024 Do You Use Any Illicit Or Recreational Drugs? No Information not available 10/14/2024 Has Tobacco Cessation Counseling Been Provided? Yes Information not available 11/30/2022 On What Date Was Tobacco Cessation Counseling Provided? 10/14/2024 Information not available 10/14/2024 Do You Or Have You Ever Used Any Other Forms Of Tobacco Or Nicotine? No Information not available 11/30/2022 Sex: Female Functional Status Question Answer Note LastModified by Organization D etails LastModified Time Are you able to care for yourself? Yes Information n ot available 10/14/2024 Mental Status None recorded. Family History Relationship Description Onset Age of this Age Resolved Age Notes LastModified by Organization Details LastModified Time Father No current problems or disability [email or web address] Not available 11/30 14:19:29 Mother No current problems or disability [email or web address] Not available 11/30 14:19:29 Medical History Condition Response High Blood Pressure Y High Cholesterol Y Allergies Y Gynecological HistoryNo gynecological history recorded. Obstetrics History GPAL:G 0 P 0 0 0 0 Immunizations Vaccine Type Date Status Note Provider Nam e and Address Organization Details Recorded Time COVID-19, mRNA, LNP-S, PF, 30 mcg/0.3 mL dose 01/04/2021 completed Genet Duvall [place] null, [place] [facility] 11/30/2022 14:23:50 COVID-19, mRNA, LNP-S, PF, 30 mcg/0.3 mL dose 01/25/2021 completed Genet Du[place], [place] [facility] 11/30/2022 14:23:50 COVID-19, mRNA, LNP-S, PF, 30 mcg/0.3 mL dose 09/13/2021 completed Genet Du[place], [place] [facility] 11/30/2022 14:23:50 Tdap 11/01/2020 completed Genet Duvall [place] [facility] 11/30/2022 14:23:50 Hep A, ped/adol, 2 dose 11/30/2022 completed Yoko Verde [place] [facility] 11/30/2022 15:36:05 Hep A, ped/adol, 2 dose 07/11/2023 completed ALIYAH [place], [place] [facility] 07/11/2023 15:36:39 Past Encounters Encounter ID Performer Location Encounter Start Date Encounter Closed Date Diagnosis/Indication Diagnosis SNOMED-CT Code Diagnosis ICD10 Code Diagnosis Note [id number] MD Paula Dubon (Adult Med) [address] [place] [phone] 11/30/2022 14:02:09 12/04/2022 16:17:03 Active immunization 63418723 Z23 Adult [facility] th examination 532280220 Z00.00 Essential hypertension 50778895 I10 [id number] MD Paula Dubon (Adult Med) [address] [place] [phone] 01/01/2023 15:59:38 01/02/2023 11:46:27 Overweight 585113256 E66.3 Hyperglycemia 34179291 R 73.9 Discussed dietary restrictio ns Hyperlipidemia 74941467 E78.5 Discussed dietary restrictio ns. Stopped fenofibrat e [id number] MD Paula Dubon (Adult Med) [address] [place] [address] [phone] 07/11/2023 14:24:07 07/19/2023 12:14:19 Essential hypertension 95420067 I10 Increase losartan Overweight 299640943 E66 .3 Hyperglycemia 21297757 R 73.9 Discussed dietary restrictio ns Hyperlipidemia 12580411 E78.5 Discussed dietary restrictio ns. Stopped fenofibrat e Active immunization 3387 [id number] Z23 [id number] MD Paula Dubon (Adult Med) [address] [place] [phone] 08/08/2023 15:01:51 08/15/2023 16:28:33 Essential hypertension 45082556 I10 BP still high with Increased losartan. Will add amlodipine Hyperlipidemia 35901132 E78.5 Discussed dietary restrictio ns. Add statin [id number] MD Paula Dubon (Adult Med) [address] [place] [address] [phone] 09/06/2023 14:37:10 09/11/2023 10:57:55 Overweight 777199203 E66.3 Essential hypertension 22824969 I10 BP improved Hyperglycemia 90899714 R 73.9 Discussed dietary restrictio ns Hyperlipidemia 59555620 E78.5 continue statin [id number] MD Paula Dubon (Adult Med) [address] [place] [address] [phone] 12/06/2023 11:23:42 12/07/2023 10:14:59 Overweight 013332550 E66.3 Essential hypertension 84063523 I10 BP improved Hyperglycemia 26866720 R 73.9 Discussed dietary restrictio ns Hyperlipidemia 36747154 E78.5 continue statin Pain of ri ght shoulder joint [id number] 5508967 M25.511 Neck pain 79078358 M54.2 [id number] Mariano Collins MD [facility] (Adult Med) [address] [place] [address] 10/14/2024 11:41:10 11/01/2024 10:21:29 Adult health examination 855091397 Z00.00 Essential hypertension 28317404 I10 BP improved Hyperglycemia 12937745 R 73.9 Discussed dietary restrictio ns Hyperlipidemia 23235761 E78.5 continue statin Health Concerns Section Related Observation LastModified by Organization Detai ls LastModified Time None Recorded Concern Status LastModified by Organization Details LastModified Time None Recorded Advance Directives Directive None Recorded Payers Encounter Date Sequence Insurance Name Policy Number Policy Robles Covered Member ID Robles Member ID Guarantor Name 07/11/2023 1 [facility] ON OR AFTER 03/24/21 (MEDICAID REPLACEMENT - HMO) Tamika Alina [id number] Tamika Alina 08/08/2023 1 [facility] ON OR AFTER 03/24/21 (MEDICAID REPLACEMENT - HMO) Tamika Alina [id number] Tamika Alina 09/06/2023 1 [facility] ON OR AFTER 03/24/21 (MEDICAID REPLACEMENT - HMO) Tamika Alina [id number] Tamika Alina 12/06/2023 1 [facility] ON OR AFTER 03/24/21 (MEDICAID REPLACEMENT - HMO) Tamika Alina [id number] Tamika Alina 10/14/2024 1 [facility] ON OR AFTER 03/24/21 (MEDICAID REPLACEMENT - HMO) Tamika Alina [id number] Tamika Alina Notes Date Note Type Note Provider Name and Address Organization Details Recorded Time 08/08/2023 text/html Here for BP f/u. Mariano Smith MD Attn: [address] [place], [address], [facility] 08/08/2023 15:50:29 09/06/2023 text/html Here for BP f/u with addition of amlodipine Mariano Collins MD Attn: [employer],[address] [facility], [place], [address], [facility] 09/06/2023 15:14:37 12/06/2023 text/html Pain in right shoulder and neck. Some relief for ibuprofen Mariano Collins MD Attn: Accounting,[address] [facility], [place], [address], [facility] 12/06/2023 12:15:08 10/14/2024 text/html Here for annual f/u Mariano Collins MD Attn: Accounting,[address] [facility], [place], [address], [facility] 10/14/2024 12:17:22 OBGyn Episode No OBEpisode recorded.
--- OUTSIDE RECORDS SUMMARY | 2024-11-06 12:05 | XMS_ITS | Clinical Summary ---
Author Organization [place] [id number] Address [address] [place] [phone] Care Team Providers Care Adult Education Manager Name Role Phone Ad Jimenez MD Primary Care Provider [phone] Allergies Active Allergy Reactions Criticality Noted Date Comments Azithromycin Edema Medium 11/01/2020 Medications nicotine (NICODERM CQ) 21 mgIndications:T obacco use Place 1 patch on the skin daily 30 patch 2 11/01/2020 Active topiramate (TOPAMAX) 25 mg tabletIndicatio ns:Weight gain Take 1 tablet (25 mg total) by mouth 2 (two) times a day 60 tablet 5 11/01/2020 Active hydrOXYzine (ATARAX) 10 mg tabletIndicatio ns:Anxiety Take 1 tablet (10 mg total) by mouth every 6 (six) hours as needed for itching for up to 14 days 42 tablet 1 11/01/2020 Active Active Problems Problem Noted Date Diagnosed Date BMI 29.0-29.9,adult 11/01/2020 Assessment & Plan (11/01/2020 3:52 PM PROFESSOR OF GEOLOGY): Obesity is unchanged. Discussed the patient's BMI. The BMI is above average. BMI management plan is completed. BMI Follow-up includes: nutrition counseling, exercise counseling and education provided. Tobacco use 11/01/2020 Assessment & Plan (11/01/2020 5:13 PM PROFESSOR OF GEOLOGY): She was advised to not smoke while wearing patches. She was advised to not vape. We discussed tapering off of the patches over the coming month. Anxiety 11/01/2020 Assessment & Plan (11/01/2020 5:16 PM PROFESSOR OF GEOLOGY): She declines ssri/snri at this time. Add atarax prn anxiety. Weight gain 11/01/2020 Assessment & Plan (11/01/2020 5:13 PM PROFESSOR OF GEOLOGY): Will start on topamax for off label use for appetite suppression. She was advised to not stop it abruptly. We discussed that soda may taste like metal and that she may have n/t in hands and toes. We will retrieve labs from [facility] [place] for review She was advised a low chol diet, exercise 4x/week for 30min each session. Encounter for screening mamm ogram for malignant neoplasm of breast 11/01/2020 Assessment & Plan (11/01/2020 4:55 PM PROFESSOR OF GEOLOGY): Will order screening mammo Need for Tdap vaccination 11/01/2020 Assessment & Plan (11/01/2020 4:55 PM PROFESSOR OF GEOLOGY): tdap today Encounter to establish care 11/01/2020 Assessment & Plan (11/01/2020 5:14 PM PROFESSOR OF GEOLOGY): Retrieve records from previous pcp, officer lieutenant Immunizations Name Administration Dates Next Due Influenza, Unspecified 07/01/2020(Deferred: Meredith ent Refused) Tdap 11/01/2020 Surgical History Surgery Date Site/Laterality Comments LEG SURGERY Family History Medical History Relation Name Comments No Known Problems Father No Known Problems Mother Relation Name Status Comments Father Alive Mother Alive Social History Tobacco Use Types Packs/Day Years Used Date Smoking Tobacco: Former Smokeless Tobacco: Never Alcohol Use Standard Drinks/Week Comments Yes 0 (1 standard drink = 0.6 oz pur e alcohol) PHQ-2 Answer Date Recorded PHQ-2 Total Score (If total score is 3 or more points, staff should administer the PHQ-9) 0 11/01/2020 Personal Safety Answer Date Recorded Getting School Help Needed Not on file 12/08 Comments Unknown Sex and Gender Information Value Date Recorded Sex Assigned at Not on file Legal Sex Female 2:29 PM PROFESSOR OF GEOLOGY Gender Identity Not on file Sexual Orientation Not on file Obstetrics History Last Filed Vital Signs Vital Sign Reading Time Taken Comments Blood Pressure 130/80 11/01/2020 3:50 PM PROFESSOR OF GEOLOGY Pulse 116 11/01/2020 3:50 PM PROFESSOR OF GEOLOGY Temperature 36.2 C (97.1 F) 11/01/2020 3:50 PM PROFESSOR OF GEOLOGY Respiratory Rate - - Oxygen Saturation 99% 11/01/2020 3:50 PM PROFESSOR OF GEOLOGY Inhaled Oxygen Concentration - - Weight 74 kg (163 lb 1.6 oz) 11/01/2020 3:50 PM PROFESSOR OF GEOLOGY Height 157.5 cm (5' 2 ) 11/01/2020 3:50 PM PROFESSOR OF GEOLOGY Body Mass Index 29.83 11/01/2020 3:50 PM PROFESSOR OF GEOLOGY Plan of Treatment Not on file Insurance Care Teams Adult Education Manager Relationship Specialty Start Date End Date Ad Jimenez MD [address] [facility] [place] [address] PCP - General Family Medicine 07/07/22
--- OUTSIDE RECORDS SUMMARY | 2024-11-06 12:05 | XMS_ITS | Referral Summary ---
Author Organization [place] [address] [place] Address [employer] [place] [address] Care Team Providers Care Thoracic Medicine Specialist Name Role Phone Ad Jimenez MD Primary Care Provider [phone] Allergies Active Allergy Reactions Criticality Noted Date [...] 11/01/2020 Assessment & Plan (11/01/2020 3:52 PM FREIGHT CHECKER): Obesity is unchanged. Discussed the patient's BMI. The BMI is above average. BMI management plan is completed. BMI Follow-up includes: nutrition counseling, exercise counseling and education provided. Tobacco use 11/01/2020 Assessment & Plan (11/01/2020 5:13 PM FREIGHT CHECKER): She was advised to not smoke while wearing patches. She was advised to not vape. We discussed tapering off of the patches over the coming month. Anxiety 11/01/2020 Assessment & Plan (11/01/2020 5:16 PM FREIGHT CHECKER): She declines ssri/snri at this time. Add atarax prn anxiety. Weight gain 11/01/2020 Assessment & Plan (11/01/2020 5:13 PM FREIGHT CHECKER): Will start on topamax for off label use for appetite suppression. She was advised to not stop it abruptly. We discussed that soda may taste like metal and that she may have n/t in hands and toes. We will retrieve labs from [facility] [place] for review She was advised a low chol diet, exercise 4x/week for 30min each session. Encounter for screening mamm ogram for malignant neoplasm of breast 11/01/2020 Assessment & Plan (11/01/2020 4:55 PM FREIGHT CHECKER): Will order screening mammo Need for Tdap vaccination 11/01/2020 Assessment & Plan (11/01/2020 4:55 PM FREIGHT CHECKER): tdap today Encounter to establish care 11/01/2020 Assessment & Plan (11/01/2020 5:14 PM FREIGHT CHECKER): Retrieve records from previous pcp, rubber molder Immunizations Name Administration Dates Next Due Influenza, Unspecified 07/01/2020(Deferred: Meredith ent Refused) Tdap 11/01/2020 Social History Tobacco Use Types Packs/Day Years [...] on file Legal Sex Female 2:29 PM FREIGHT CHECKER Gender Identity Not on file Sexual Orientation Not on file Last Filed Vital Signs Vital Sign Reading Time Taken Comments Blood Pressure 130/80 11/01/2020 3:50 PM FREIGHT CHECKER Pulse 116 11/01/2020 3:50 PM FREIGHT CHECKER Temperature 36.2 C (97.1 F) 11/01/2020 3:50 PM FREIGHT CHECKER Respiratory Rate - - Oxygen Saturation 99% 11/01/2020 3:50 PM FREIGHT CHECKER Inhaled Oxygen Concentration - - Weight 74 kg (163 lb 1.6 oz) 11/01/2020 3:50 PM FREIGHT CHECKER Height 157.5 cm (5' 2 ) 11/01/2020 3:50 PM FREIGHT CHECKER Body Mass Index 29.83 11/01/2020 3:50 PM FREIGHT CHECKER Plan of Treatment Not on file Insurance [facility] Care Teams Thoracic Medicine Specialist Relationship Specialty Start Date End Date Ad Jimenez MD [address] [facility] [address] [address] PCP - General Family Medicine 07/07/22
[2024-11-06 12:29] VITALS: BP 115/63; PULSE 99; RESP 16; TEMP 36.6; O2SAT 100
--- OUTSIDE RECORDS SUMMARY | 2024-11-06 13:55 | XMS_ITS | Clinical Summary ---
Author Organization [place] [address] [facility] Address [address] [place] [address] Care Team Providers Care Data Warehouse Consultant Name Role Phone Ad Jimenez MD Primary Care Provider [phone] Allergies Active Allergy Reactions Criticality Noted Date [...] 11/01/2020 Assessment & Plan (11/01/2020 3:52 PM HOUSE DESIGNER): Obesity is unchanged. Discussed the patient's BMI. The BMI is above average. BMI management plan is completed. BMI Follow-up includes: nutrition counseling, exercise counseling and education provided. Tobacco use 11/01/2020 Assessment & Plan (11/01/2020 5:13 PM HOUSE DESIGNER): She was advised to not smoke while wearing patches. She was advised to not vape. We discussed tapering off of the patches over the coming month. Anxiety 11/01/2020 Assessment & Plan (11/01/2020 5:16 PM HOUSE DESIGNER): She declines ssri/snri at this time. Add atarax prn anxiety. Weight gain 11/01/2020 Assessment & Plan (11/01/2020 5:13 PM HOUSE DESIGNER): Will start on topamax for off label use for appetite suppression. She was advised to not stop it abruptly. We discussed that soda may taste like metal and that she may have n/t in hands and toes. We will retrieve labs from [facility] [place] for review She was advised a low chol diet, exercise 4x/week for 30min each session. Encounter for screening mamm ogram for malignant neoplasm of breast 11/01/2020 Assessment & Plan (11/01/2020 4:55 PM HOUSE DESIGNER): Will order screening mammo Need for Tdap vaccination 11/01/2020 Assessment & Plan (11/01/2020 4:55 PM HOUSE DESIGNER): tdap today Encounter to establish care 11/01/2020 Assessment & Plan (11/01/2020 5:14 PM HOUSE DESIGNER): Retrieve records from previous pcp, farmworker livestock Immunizations Name Administration Dates Next Due Influenza, [...] on file Legal Sex Female 2:29 PM HOUSE DESIGNER Gender Identity Not on file Sexual Orientation Not on file Obstetrics History Last Filed Vital Signs Vital Sign Reading Time Taken Comments Blood Pressure 130/80 11/01/2020 3:50 PM HOUSE DESIGNER Pulse 116 11/01/2020 3:50 PM HOUSE DESIGNER Temperature 36.2 C (97.1 F) 11/01/2020 3:50 PM HOUSE DESIGNER Respiratory Rate - - Oxygen Saturation 99% 11/01/2020 3:50 PM HOUSE DESIGNER Inhaled Oxygen Concentration - - Weight 74 kg (163 lb 1.6 oz) 11/01/2020 3:50 PM HOUSE DESIGNER Height 157.5 cm (5' 2 ) 11/01/2020 3:50 PM HOUSE DESIGNER Body Mass Index 29.83 11/01/2020 3:50 PM HOUSE DESIGNER Plan of Treatment Not on file Insurance Care Teams Data Warehouse Consultant Relationship Specialty Start Date End Date Ad Jimenez MD [address] [facility] [place] [place] [address] PCP - General Family Medicine 07/07/22
--- OUTSIDE RECORDS SUMMARY | 2024-11-06 13:55 | XMS_ITS | Referral Summary ---
Author Organization [place] 3930[facility] Address [facility] [place] [address] Care Team Providers Care Refinery Operator Helper Name Role Phone Ad Jimenez MD Primary Care Provider [phone] Allergies Active Allergy Reactions Criticality Noted Date [...] 11/01/2020 Assessment & Plan (11/01/2020 3:52 PM CARPENTER LABOR SUPERVISOR): Obesity is unchanged. Discussed the patient's BMI. The BMI is above average. BMI management plan is completed. BMI Follow-up includes: nutrition counseling, exercise counseling and education provided. Tobacco use 11/01/2020 Assessment & Plan (11/01/2020 5:13 PM CARPENTER LABOR SUPERVISOR): She was advised to not smoke while wearing patches. She was advised to not vape. We discussed tapering off of the patches over the coming month. Anxiety 11/01/2020 Assessment & Plan (11/01/2020 5:16 PM CARPENTER LABOR SUPERVISOR): She declines ssri/snri at this time. Add atarax prn anxiety. Weight gain 11/01/2020 Assessment & Plan (11/01/2020 5:13 PM CARPENTER LABOR SUPERVISOR): Will start on topamax for off label use for appetite suppression. She was advised to not stop it abruptly. We discussed that soda may taste like metal and that she may have n/t in hands and toes. We will retrieve labs from [facility] for review She was advised a low chol diet, exercise 4x/week for 30min each session. Encounter for screening mamm ogram for malignant neoplasm of breast 11/01/2020 Assessment & Plan (11/01/2020 4:55 PM CARPENTER LABOR SUPERVISOR): Will order screening mammo Need for Tdap vaccination 11/01/2020 Assessment & Plan (11/01/2020 4:55 PM CARPENTER LABOR SUPERVISOR): tdap today Encounter to establish care 11/01/2020 Assessment & Plan (11/01/2020 5:14 PM CARPENTER LABOR SUPERVISOR): Retrieve records from previous pcp, media reporter Immunizations Name Administration Dates Next Due Influenza, [...] on file Legal Sex Female 2:29 PM CARPENTER LABOR SUPERVISOR Gender Identity Not on file Sexual Orientation Not on file Last Filed Vital Signs Vital Sign Reading Time Taken Comments Blood Pressure 130/80 11/01/2020 3:50 PM CARPENTER LABOR SUPERVISOR Pulse 116 11/01/2020 3:50 PM CARPENTER LABOR SUPERVISOR Temperature 36.2 C (97.1 F) 11/01/2020 3:50 PM CARPENTER LABOR SUPERVISOR Respiratory Rate - - Oxygen Saturation 99% 11/01/2020 3:50 PM CARPENTER LABOR SUPERVISOR Inhaled Oxygen Concentration - - Weight 74 kg (163 lb 1.6 oz) 11/01/2020 3:50 PM CARPENTER LABOR SUPERVISOR Height 157.5 cm (5' 2 ) 11/01/2020 3:50 PM CARPENTER LABOR SUPERVISOR Body Mass Index 29.83 11/01/2020 3:50 PM CARPENTER LABOR SUPERVISOR Plan of Treatment Not on file Insurance [facility] Care Teams Refinery Operator Helper Relationship Specialty Start Date End Date Ad Jimenez MD [address] [facility] [address] [address] PCP - General Family Medicine 07/07/22
--- NOTE | 2024-11-06 14:25 | ED_ITS ---
HPI - General Adult General Chief complaint: Nausea/Vomiting/Diarrhea Stated complaint: n/v/d x2d Time Seen by Provider: 11/06/24 13:47 History of Present Illness HPI narrative: Patient is a 44-year-old female who presents to the ER with body aches and chills and hot flashes over last 2 days as well as diarrhea and vomiting. Additionally she has had cough for the 2 days preceding that. Concerned she has influenza. She also reports abdominal pain to the right lower quadrant. No aggravating or alleviating factors. Related Data Home Medications ?Medication ?Instructions ?Recorded ?Confirmed ?Last Taken ?Type Iud 10/08/20 10/20/22 Unknown History Allergies Allergy/AdvReac Type Severity Reaction Status Date / Time erythromycin base Allergy facial Verified 11/06/24 14:11 swelling Review of Systems 2 Review of Systems: All systems reviewed & are unremarkable except as noted in HPI and below Constitutional: Constitutional: Reports chills, Reports fatigue and Reports fever(s) ENT: Denies nasal congestion and Denies sore throat Cardiovascular: Cardiovascular: Reports no additional cardiovascular complaints Respiratory: Respiratory: Reports no additional respiratory complaints Gastrointestinal: Gastrointestinal: Reports abdominal pain, Reports diarrhea, Reports nausea and Reports vomiting Genitourinary: Genitourinary: Reports no additional female genitourinary complaints PMF Past Medical History Medical History No acute medical problems Family History Family History Other Diabetes mellitus Social History Social History Smoking packs per day: 0.5 Smoking cigarettes per day: 10.0 Smoking status: Current every day smoker Alcohol intake: current Gender identity (if verbalized by the patient): Female Exam 2 Narrative: GENERAL: Well-appearing, well-nourished, and in no acute distress. HEAD: Normocephalic, atraumatic. ENT: Mucous membranes moist. CHEST: Clear to auscultation. No respiratory distress. HEART: Regular rate and rhythm. Normal peripheral pulses. ABDOMEN: Soft, tender to palpation right lower quadrant, nondistended. EXTREMITIES: Normal range of motion. No edema. SKIN: Warm, dry, no rash. NEURO: Alert and oriented x3. PSYCH: Normal mood and affect. Course Vital Signs Vital signs: Vital Signs Temperature 97.8 F 11/06/24 12:29 Pulse Rate 99 11/06/24 12:29 Respiratory Rate 16 11/06/24 12:29 Blood Pressure 115/63 11/06/24 12:29 Pulse Oximetry 100 11/06/24 12:29 Oxygen Delivery Room Air 11/06/24 12:29 Temperature 97.8 F 11/06/24 12:29 Pulse Rate 99 11/06/24 12:29 Respiratory Rate 16 11/06/24 12:29 Blood Pressure 115/63 11/06/24 12:29 Pulse Oximetry 100 11/06/24 12:29 Oxygen Delivery Room Air 11/06/24 12:29 Medical Decision Making MDM Narrative Medical decision making narrative: -Course: Resting comfortably without any major changes. -Co-morbidities complicating care: None -Social determinants of health: None -External Chart Review: None -Hx from independent Sources: Patient -Independent interpretation of studies: Mild leukocytosis with normal hemoglobin. Normal electrolytes and renal function as well as liver function test. Negative viral panel. CT scan with colitis. -Interventions: IV fluid, Zofran. -Shared decision making / Disposition: Discharge home with Cipro/Flagyl/zofran. Vital Signs Vital Signs: Vital Signs Temperature 97.8 F 11/06/24 12:29 Pulse Rate 99 11/06/24 12:29 Respiratory Rate 16 11/06/24 12:29 Blood Pressure 115/63 11/06/24 12:29 Pulse Oximetry 100 11/06/24 12:29 Oxygen Delivery Room Air 11/06/24 12:29 Temperature 97.8 F 11/06/24 12:29 Pulse Rate 99 11/06/24 12:29 Respiratory Rate 16 11/06/24 12:29 Blood Pressure 115/63 11/06/24 12:29 Pulse Oximetry 100 11/06/24 12:29 Oxygen Delivery Room Air 11/06/24 12:29 Lab Data 11/06/24 14:37 11/06/24 14:37 Labs: Lab Results 11/06/24 11/06/24 11/06/24 Range/Units 13:52 14:37 15:46 WBC 12.6 H (4.5-10.0) K/mm3 RBC 4.54 (4.2-5.4) M/mm3 Hgb 14.5 (12.0-15.0) g/dL Hct 42.6 (37.0-47.0) % MCV 93.8 (80-100) fl MCH 31.9 (26-34) pg MCHC 34.0 (32-36) g/dl RDW 13.0 (11.5-14.5) % Plt Count 337 (150-375) k/mm3 MPV 8.8 (7.4-10.4) fl Immature Gran % (Auto) 0.4 (0-0.5) % Neut % (Auto) 76.8 H (45.5-73.1) % Lymph % (Auto) 14.3 L (18.3-44.2) % [place] % (Auto) 7.9 (2.6-8.5) % Eos % (Auto) 0.4 (0-4.4) % Baso % (Auto) 0.2 (0.2-1.2) % Lymph # (Auto) 1.80 (0.9-3.2) K/mm3 [place] # (Auto) 1.0 H (0.1-0.6) K/mm3 Eos # (Auto) 0.1 (0-0.3) K/mm3 Baso # (Auto) 0.0 (0.0-0.1) K/mm3 Abs Immat Gran (auto) 0.05 H (0.00-0.031) K/mm3 Absolute Neuts (auto) 9.7 H (1.3-6.7) K/mm3 Absolute Nucleated RBC 0.000 (0.0-0.012) K/mm3 Nucleated RBC % 0.0 (0.0-0.2) % Sodium 137 (137-145) mmol/L Potassium 3.9 (3.4-5.0) mmol/L Chloride 102 (98-107) mmol/L Carbon Dioxide 27 (22-30) mmol/L Anion Gap 8 (4-12) mmol/L BUN 14 (7-17) mg/dL Creatinine 0.56 L (0.7-1.0) mg/dL Estim Creat Clear Calc 98 ml/min Estimated GFR > 60 (59 - ) Glucose 104 (65-110) mg/dL Calcium 10.1 (8.4-10.2) mg/dL Total Bilirubin 0.6 (0.2-1.3) mg/dL AST 24 (14-36) U/L ALT 18 (6-35) U/L Alkaline Phosphatase 57 (38-126) U/L Total Protein 7.0 (6.3-8.2) g/dL Albumin 4.2 (3.5-5.1) g/dL POC Urine HCG, Qual Negative (Negative) Influenza A (RT-PCR) Negative (Negative) Influenza B (RT-PCR) Negative (Negative) RSV (RT-PCR) Negative (Negative) SARS-CoV-2 RNA (RT-PCR) Negative (Negative) Discharge Plan Discharge Clinical Impression: Colitis Patient Disposition: Home, Self-Care Condition: Stable Instructions: Colitis (ED) Additional Instructions: Please drink plenty of fluids at home. Return to the emergency department if you develop high fevers, have persistent severe abdominal pain, or have bloody stools or vomit, as these could be signs of a more serious medical emergency. Return to the emergency department if you are unable to keep down liquids because of severe nausea/vomiting. Patient Language: Setswana Prescriptions: New ciprofloxacin HCl 500 mg tablet 500 mg PO Q12H Qty: 14 0RF metronidazole 500 mg tablet 500 mg PO Q8H Qty: 21 0RF ondansetron 4 mg tablet,disintegrating 4 mg PO Q6H PRN (Reason: nausea and vomiting) Qty: 10 0RF No Action Iud ibuprofen 600 mg tablet 600 mg PO TID PRN (Reason: pain) Qty: 60 1RF sennosides-docusate sodium 8.6-50 mg tablet 1 tab-cap PO BID Qty: 30 1RF oxycodone-acetaminophen [Percocet] 7.5-325 mg tablet 1 tablet PO Q6H PRN (Reason: pain) Qty: 30 0RF hydrocodone-acetaminophen 5-325 mg tablet 1 tablet PO Q12H PRN (Reason: pain) Qty: 10 0RF amoxicillin-pot clavulanate 875-125 mg tablet 1 tablet PO Q12H Qty: 14 0RF Follow-up/Referrals: Dennis,Mariano Hoyt MD [Primary Care Provider] - 1 Week
[2024-11-06 14:40] LABS: Influenza A QL RT-PCR Negative (Negative); Influenza B QL RT-PCR Negative (Negative); RSV RNA, RT-PCR Negative (Negative); SARS-CoV-2 RNA PCR Negative (Negative)
[2024-11-06 14:42] LABS: Basophils Percent Auto 0.2 % (0.2-1.2); Eosinophils Absolute Auto 0.1 K/mm3 (0-0.3); Eosinophils Percent Auto 0.4 % (0-4.4); Hematocrit 42.6 % (37.0-47.0); Hemoglobin 14.5 g/dL (12.0-15.0); Immature Granulocyte Absolute 0.05 K/mm3 (0.00-0.031); Immature Granulocyte Percent A 0.4 % (0-0.5); Lymphocytes Percent Auto 14.3 % (18.3-44.2); Mean Corpuscular Hemoglobin 31.9 pg (26-34); Mean Corpuscular Volume 93.8 fl (80-100); Mean Platelet Volume 8.8 fl (7.4-10.4); Monocytes Percent Auto 7.9 % (2.6-8.5); Neutrophils Absolute Auto 9.7 K/mm3 (1.3-6.7); Neutrophils Percent Auto 76.8 % (45.5-73.1); Platelet Count Result 337 k/mm3 (150-375); Red Blood Count 4.54 M/mm3 (4.2-5.4); White Blood Count 12.6 K/mm3 (4.5-10.0)
[2024-11-06] MEDS: ONDANSETRON INJ 4 MG/2 ML VIAL IV PUSH (14:44)
[2024-11-06] MEDS: SODIUM CHLORIDE 0.9% IV 1,000 ML 999 ML IV CONT (14:44)
[2024-11-06 15:07] LABS: Alanine Aminotransferase 18 U/L (6-35); Albumin Level 4.2 g/dL (3.5-5.1); Alkaline Phosphatase 57 U/L (38-126); Anion Gap 8 mmol/L (4-12); Aspartate Amino Transferase 24 U/L (14-36); Bilirubin,Total 0.6 mg/dL (0.2-1.3); Blood Urea Nitrogen 14 mg/dL (7-17); Calcium 10.1 mg/dL (8.4-10.2); Carbon Dioxide 27 mmol/L (22-30); Chloride 102 mmol/L (98-107); Estimated CRCL calculation 98 ml/min; Estimated Glomerular Filt Rate > 60; Glucose 104 mg/dL (65-110); Potassium 3.9 mmol/L (3.4-5.0); Sodium 137 mmol/L (137-145)
[2024-11-06 15:46] LABS: BEDSIDEPREGUCG Negative (Negative)
== END 2024-11-06 16:54 | disposition home or self-care (01) ==
PROVIDERS: Emergency Medicine; Emergency Provider Emergency Medicine; PCP Internal Medicine Gastroenterology
DX: K52.9 Noninfective gastroenteritis and colitis, unspecified (principal); Z20.822 Contact with and (suspected) exposure to COVID-19; F17.210 Nicotine dependence, cigarettes, uncomplicated
CPT/HCPCS: 36415; 74177; 80053; 81025; 85025; 87637; 96361; 96374; 99284; J2405; J7030; Q9967